=== PATIENT | male | born 1965 ===

== ENCOUNTER 2018-09-20 16:59 | Inpatient (IN) | payer OTHER ==
[2018-09-20 17:12] VITALS: BMI 25.8
--- NOTE | 2018-09-20 17:18 | ED PDOC ---
Arrival/HPI - General Historian: Patient - History of Present Illness Narrative History of Present Illness (Text): 09/20/18 17:14 53 year old male, no pmh, nkda, complaining of Lt. sided chest tightness radiating to the LUE x 1 day with no fall or trauma. Aching pain, pressure on the chest, radiating to the LUE when severe, admits palpitation, no night sweat, went to the [facility] urgent care and refer to the ER for evaluation, no coughing, no tearing sensation, no numbness or tingling, no other medical or psychological complaints. Past Medical History - Provider Review Nursing Documentation Reviewed: Yes Family/Social History - Physician Review Nursing Documentation Reviewed: Yes Family/Social History: Unknown Family HX Allergies/Home Meds Allergies/Adverse Reactions: Allergies No Known Allergies Allergy (Verified 09/20/18 17:19) Home Medications: Home Meds Medication Instructions Recorded Confirmed No Known Home Med 09/20/18 09/20/18 Review of Systems - Review of Systems Constitutional: absent: Fatigue, Fevers Eyes: absent: Vision Changes ENT: absent: Hearing Changes Respiratory: absent: SOB, Cough Cardiovascular: Chest Pain, Palpitations. absent: Orthopnea, Syncope Gastrointestinal: absent: Abdominal Pain, Diarrhea, Nausea, Vomiting Musculoskeletal: absent: Arthralgias, Back Pain Skin: absent: Rash, Pruritis, Skin Lesions Neurological: absent: Headache, Dizziness Endocrine: absent: Diaphoresis Psychiatric: absent: Anxiety, Depression, Suicidal Ideation Physical Exam Vital Signs Reviewed: Yes Vital Signs Temp Pulse Resp BP Pulse Ox 09/20/18 17:12 97.9 F 70 16 151/78 H 98 Temperature: Afebrile Blood Pressure: Hypertensive Pulse: Regular Respiratory Rate: Normal Appearance: Positive for: Well-Appearing, Non-Toxic, Comfortable Pain Distress: Mild Mental Status: Positive for: Alert and Oriented X 3 - Systems Exam Head: Present: Atraumatic, Normocephalic Pupils: Present: PERRL Extroacular Muscles: Present: EOMI Conjunctiva: Present: Normal Mouth: Present: Moist Mucous Membranes Pharnyx: Present: Normal. No: ERYTHEMA, EXUDATE, TONSILS ENLARGED Nose (External): Present: Atraumatic. No: Abrasion, Contusion, Laceration Nose (Internal): Present: Normal Inspection, No Active Bleeding. No: Rhinorrhea, Septal Hematoma, Epistaxis Neck: Present: Normal Range of Motion, Trachea Midline. No: Meningeal Signs, MIDLINE TENDERNESS, Paraspinal Tenderness, Lymphadenopathy Respiratory/Chest: Present: Clear to Auscultation, Good Air Exchange. No: Respiratory Distress, Accessory Muscle Use Cardiovascular: Present: Regular Rate and Rhythm, Normal S1, S2. No: Murmurs Abdomen: No: Tenderness, Distention, Peritoneal Signs, Rebound, Guarding Back: Present: Normal Inspection. No: CVA Tenderness, Midline Tenderness, Paraspinal Tenderness Upper Extremity: Present: Normal Inspection, Normal ROM, NORMAL PULSES, Neurovascularly Intact, Capillary Refill < 2s. No: Cyanosis, Edema, Deformity Lower Extremity: Present: Normal Inspection, NORMAL PULSES, Neurovascularly Intact. No: Edema, Tenderness, Swelling Neurological: Present: GCS=15, CN II-XII Intact, Speech Normal, Motor Func Grossly Intact, Gait Normal, Memory Normal Skin: Present: Warm, Dry, Normal Color. No: Rashes Psychiatric: Present: Alert, Oriented x 3, Normal Insight, Normal Concentration Medical Decision Making ED Course and Treatment: 09/20/18 17:21 -Labs -ekg -cxr -aspirin/nitro (confirmed with the patient that he has no cialis/viagra category medications use in the past 24 hours)/oxygen -observe and reassess 09/20/18 18:23 -EKG: NSR @ 67 BPM, no ST elevation or depression, T wave inversions in lead III/V3-V6 with no previous comparison -Chest xray ER wet read: no active disease -labs show no acute findings -Trop is negative first set -HEART score is moderate, will need admission for rule out ACS syndrome -Symptoms improved with meds given in the ER. -I discussed with the admitting physician Dr. Li, request Dr. Gonzales on the routine consult which request sets of troponin which she will follow up the result and consults. - RAD Interpretation Radiology Orders: Date of service: 09/20/2018 HISTORY: Chest pain. COMPARISON: No prior. FINDINGS: LUNGS: No active pulmonary disease. PLEURA: No significant pleural effusion identified, no pneumothorax apparent. CARDIOVASCULAR: No atherosclerotic calcification present Normal. OSSEOUS STRUCTURES: No significant abnormalities. VISUALIZED UPPER ABDOMEN: Normal. OTHER FINDINGS: None. IMPRESSION: No active disease. Concordant results with the preliminary interpretation rendered by the emergency department physician\PA at the conclusion of the procedure. Non Profit Director: Radiologist - EKG Interpretation EKG Interpretation (Text): 09/20/18 17:22 -EKG: NSR @ 67 BPM, no ST elevation or depression, T wave inversions in lead III/V3-V6 with no previous comparison Interpreted by ED Physician: Yes Type: 12 lead EKG - PA / PNEUMATIC HOIST OPERATOR / Resident Statement MD/DO has reviewed & agrees with the documentation as recorded. Disposition/Present on Arrival - Present on Arrival Any Indicators Present on Arrival: No History of DVT/PE: No History of Uncontrolled Diabetes: No Urinary Catheter: No History of Decub. Ulcer: No - Disposition Have Diagnosis and Disposition been Completed?: Yes Diagnosis: Chest pain, Abnormal EKG Disposition: HOSPITALIZED Disposition Time: 17:25 Patient Plan: Admission, Telemetry Patient Problems: Current Active Problems Problem Status Onset Chest pain Acute Abnormal EKG Acute Condition: GUARDED
[2018-09-20] MEDS ORDERED: Morphine 2 mg/ml ISec IVP STA (17:23)
[2018-09-20 18:08] LABS: BASO # 0.02 K/mm3 (0.0-2.0); BASO % 0.4 % (0.0-3.0); EOS # 0.1 (0.0-0.7); EOS % 0.9 % (1.5-5.0); HEMOGLOBIN 14.4 g/dL (14.0-18.0); LYMPH # 2.1 (1.2-3.4); LYMPH % 37.8 % (22.0-35.0); MEAN CELL VOLUME 84.6 fl (80.0-105.0); MEAN CORPUSCULAR HEMOGLOBIN 30.4 pg (25.0-35.0); MEAN CORPUSCULAR HGB CONC 35.9 g/dl (31.0-37.0); MEAN PLATELET VOLUME 10.1 fl (7.0-11.0); MONO # 0.4 (0.1-0.6); MONO % 6.8 % (1.0-6.0); RBC 4.74 10^6/uL (3.5-6.1); RED CELL DISTRIBUTION WIDTH 13.4 % (11.5-14.5); WHITE BLOOD COUNT 5.6 10^3/uL (4.5-11.0)
[2018-09-20 18:21] LABS: ALB/GLOB RATIO 1.6 (1.1-1.8); ALBUMIN 4.8 g/dL (3.0-4.8); ALT/SGPT 46 U/L (7-56); AST/SGOT 38 U/L (17-59); BLOOD UREA NITROGEN 15 mg/dL (7-21); CALCIUM 9.8 mg/dL (8.4-10.5); GFR NON-AFRICAN AMERICAN > 60
[2018-09-20 18:30] LABS: TROPONIN I < 0.01 ng/mL
--- NOTE | 2018-09-20 18:55 | RAD ---
Date of service: 09/20/2018 HISTORY: Chest pain. COMPARISON: No prior. FINDINGS: LUNGS: No active pulmonary disease. PLEURA: No significant pleural effusion identified, no pneumothorax apparent. CARDIOVASCULAR: No atherosclerotic calcification present Normal. OSSEOUS STRUCTURES: No significant abnormalities. VISUALIZED UPPER ABDOMEN: Normal. OTHER FINDINGS: None. IMPRESSION: No active disease. Concordant results with the preliminary interpretation rendered by the emergency department physician procedure.
[2018-09-21 01:37] LABS: TROPONIN I < 0.01 ng/mL
--- NOTE | 2018-09-21 07:47 | CARD ---
APPROVED REPORT Date of service: 09/20/2018 EKG Measurement Heart [id number] NM [id number] <Conclusion> Normal sinus rhythm T wave abnormality, consider anterolateral ischemia Abnormal ECG
[2018-09-21 09:04] LABS: TROPONIN I < 0.01 ng/mL
[2018-09-21 10:04] LABS: HDL CHOLESTEROL 22 mg/dL (29-60)
[2018-09-21 10:15] LABS: LDL CHOLESTEROL 72 mg/dL (0-129)
--- NOTE | 2018-09-21 10:20 | CON ---
DATE: 09/21/2018 REQUESTING PHYSICIAN: Dr. Li REASON FOR CONSULTATION: Chest pain. HISTORY: This is a 53-year-old man with no significant past medical history, who presents to the emergency room complaining of left-sided chest discomfort. He describes it as a heaviness which has been on his chest for the past several days. His pain is waxed and waned, it became more severe yesterday and he presented to an urgent care center and was referred to the emergency room. He also states he had some numbness in his left arm which made him concerned. He cannot identify any precipitating or relieving factors. He has no prior cardiac history. To the best of his knowledge, he is not hypertensive or diabetic. He is uncertain of his cholesterol status. He does not smoke. There is no family history of premature heart disease. PAST MEDICAL HISTORY: Otherwise unremarkable. MEDICATIONS: None. SOCIAL HISTORY: He does not smoke or drink. He is , lives with his . FAMILY HISTORY: Father in his 80s from age-related illness. Mother is alive with a history of diabetes as is his sister. REVIEW OF SYSTEMS: A 10-point review of systems is otherwise unremarkable. PHYSICAL EXAMINATION: GENERAL: He is a fairly healthy-appearing middle-aged man. VITAL SIGNS: His blood pressure is 116/80 with a pulse of 70 and sinus, respirations are 14. He is afebrile. HEENT: Normocephalic, atraumatic. NECK: Supple. No JVD noted. CHEST: Clear to auscultation and percussion. HEART: PMI in normal position. No pathologic murmurs or gallops noted. ABDOMEN: Soft, nontender, normoactive bowel sounds. EXTREMITIES: No edema. SKIN: Warm and dry. PSYCHIATRIC: Normal mood and affect. NEUROLOGICAL: Alert and oriented x3. No gross motor or sensory deficits appreciable. DIAGNOSTIC DATA: White count 5.6, hemoglobin and hematocrit of 14.4 and 40.1 with a platelet count of 159,000. BUN and creatinine of 15 and 0.9. Glucose is 95. Two sets of cardiac enzymes are negative. Lipid panel is not performed. Chest x-ray reveals normal cardiac silhouette with clear lung mccoy. Electrocardiogram reveals sinus rhythm with nonspecific ST-T abnormalities. IMPRESSION: Chest pain in a middle-aged man with no clear cardiac risk factors and negative cardiac enzymes. The possibility of underlying coronary disease is certainly possible. Lipid profile should be checked before discharge. As he is currently comfortable and his cardiac enzymes are negative, discharge home at this time will be reasonable and an outpatient stress test next week will be arranged. A lipid panel has been ordered. If he has any worsening symptoms, he was instructed to return to the emergency room. Thank you for this consultation. We will be happy to arrange for his outpatient workup as needed. Keenan Saleh MD
[2018-09-22 07:03] LABS: HDL CHOLESTEROL 23 mg/dL (29-60)
[2018-09-22 07:14] LABS: LDL CHOLESTEROL 88 mg/dL (0-129)
--- NOTE | 2018-09-22 15:57 | HP ---
DATE OF EXAM: 09/20/2018 HISTORY OF PRESENT ILLNESS: This 53-year-old male was examined in the [facility] Emergency Room on the afternoon of 09/20/2018. This case was reviewed in detail with Rocael Eldridge, nurse practitioner. The patient presented to the [facility] ER complaining of left-sided chest tightness. Earlier today, he had been in a local Urgent Care Center where he was noted to have an abnormal EKG with inverted T-waves V1-V6. This was again confirmed in the [facility] ER and because of this achy pressure in his chest, tight feeling radiating to his left upper extremity, he is admitted for chest pain rule out CT. The patient states he is on no medication, has not been to a doctor in years, is without any significant past medical history, and at present was chest pain free. SOCIAL HISTORY: He is a nondrinker, nonsmoker, non IV drug misuser. 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 He is and lives with his . FAMILY HISTORY: Noncontributory. REVIEW OF SYSTEMS HEAD REVIEW: No headache or seizure. EYE REVIEW: No change in visual acuity. EAR REVIEW: No hearing loss. THROAT REVIEW: No swallowing difficulty. NECK REVIEW: No stiffness. CARDIAC REVIEW: None in the past. PULMONARY: No cough. No hemoptysis. GI: No hematemesis. No melena. : No dysuria. SKIN: No rash. VASCULAR: No claudication. PSYCHOLOGICAL: No knowledge of anxiety or depression. PHYSICAL EXAMINATION VITAL SIGNS: He was in sinus rhythm with a temperature of 97.9, respirations 16, pulse 70, and blood pressure 134/69 with a pulse ox of 98%. HEENT: Head: Normocephalic, atraumatic. Eyes: No icterus. Ears: Clear. Throat: Noninjected. NECK: Supple. HEART: Regular S1, S2. No pathological rubs, murmurs or gallops. LUNGS: Clear. ABDOMEN: Soft. EXTREMITIES: No edema. SKIN: Without rash. NEUROLOGICAL: Intact. PSYCHOLOGICAL: Alert. VASCULAR: Legs warm to touch. LABORATORY DATA: White count 5600, hemoglobin 14.4, hematocrit 40.1, platelets 159,000. Sodium 140, K 4.2, chloride 105, bicarb 28, BUN 15, creatinine 0.9, random blood sugar 95. Calcium 9.8, magnesium 2.2, bilirubin 0.5. AST 38, ALT 46, alk phos 86. First set of troponin less than 0.01. Chest x-ray was reviewed, it showed no active pulmonary disease, no infiltrate, no effusion, no pneumothorax, no consolidation. His EKG was reviewed, it showed normal sinus rhythm with inverted T-waves in the V1-V6 leads. IMPRESSION: A 53-year-old male with chest tightness, abnormal EKG, rule out myocardial infarction, rule out coronary artery syndrome. PLAN: The plan is to admit this patient to the [facility]. He will have a consultation with Dr. Keenan Saleh from Cardiology. He will have serial cardiac isoenzymes and have a heart-healthy diet and fasting lipids ordered for the a.m. All of the above was reviewed with the patient and his in the emergency room. All questions were answered. Greater than 75 minutes was spent in the care management outlining of orders and reviewing of x-rays, labs and EKGs, and discussion of this case with nurse practitioner in the emergency room. All questions were answered. Beba Li MD [facility]
[2018-09-23 06:18] VITALS: O2SAT 98
--- NOTE | 2018-09-23 08:13 | PN ---
DATE: 09/21/2018 SUBJECTIVE: This 53-year-old male was examined on the [facility] on the morning of 09/21/2018. The patient was sitting with his , Angeles Recinos and present for the interview was nurse Krystal Velasquez, registered nurse. The patient denied any active chest pain at present. He was seen in consultation by Dr. Saleh. Dr. Saleh felt the patient could have an elective stress test as an outpatient, however, the raised concerns that the patient may not have been forthcoming with all of his symptoms including persistent on and off chest pain, reluctance for medical followup in the past or future, and strong risk factors including age of 53, typical chest pain symptoms, abnormal EKG and on today's lab testing a finding of a triglyceride level of 516. The patient has been placed on a heart-healthy diet, empiric Lopid therapy, and now agrees to inpatient thallium stress testing. PHYSICAL EXAMINATION: GENERAL: He was in normal sinus rhythm on the desk monitor, chest pain free at the moment. VITAL SIGNS: Temperature 98.2, respirations 18, pulse 72, blood pressure 103/61, and pulse ox 96%. Physical exam unchanged. LABORATORY DATA: Second set of CPK isoenzymes, CPK 149 with troponin less than 0.01 and a third set of his isoenzyme showed CPK 133 with troponin less than 0.01. Cholesterol 158, triglycerides 516, LDL 72 and HDL 22. IMPRESSION: This is a 53-year-old male with critical chest pain, age 53, hypertriglyceridemia and abnormal echocardiogram as discussed with the patient, present at bedside and nurse, Krystal Velasquez. He will be started on Lopid 600 mg p.o. b.i.d., given a heart-healthy diet, and ordered to have a Lexiscan stress test on Sunday morning prior to discharge to ensure that this patient is safe to return to his job at work. Greater than 35 minutes was spent in the care management, review of labs, orders and x-rays and discussion of this patient with himself, his and nursing. All questions were answered. Beba Li MD [facility]
--- NOTE | 2018-09-23 08:13 | PN ---
DATE: 09/22/2018 SUBJECTIVE: This 53-year-old male remains hospitalized on the [facility] on the morning of 09/22/2018. Of note, the patient did have a repeat fasting cholesterol, lipid panel that showed cholesterol 155, triglycerides 318, LDL 88, and HDL 23. The patient was also given Lopid yesterday. At present, he denies active chest pain. There are no fever or chills. He is in a sinus rhythm on the panel monitor. PHYSICAL EXAMINATION: VITAL SIGNS: Temperature is 98.7, respirations 18, pulse 68 and blood pressure 115/69. Pulse ox 98%. HEENT: Head normocephalic, atraumatic. Eyes: No icterus. Ears: Clear. Throat: Noninjected. NECK: Supple. HEART: S1, S2. LUNGS: Clear. ABDOMEN: Soft. EXTREMITIES: No edema. SKIN: Without rash. NEUROLOGIC: Intact. PSYCHOLOGIC: Alert. VASCULAR: Legs warm to touch. IMPRESSION: A 53-year-old male who presented with typical chest pain, abnormal echocardiogram showing anterior lateral ischemia with hyperlipidemia. PLAN: To maintain this patient on the [facility]. I have ordered a Lexiscan stress test for the a.m. He will continue on heart-healthy diet, Lopid 600 mg p.o. b.i.d. and cardiac monitoring. Greater than 35 minutes was spent in the care management, review of labs, orders and x-rays and discussion of this patient with himself, nursing, and . All questions were answered. Beba Li MD
[2018-09-23] MEDS ORDERED: Aminophylline 25 mg/ml Inj ONE (09:46)
[2018-09-23 18:07] VITALS: RESP 20
--- NOTE | 2018-09-23 20:01 | CARD ---
APPROVED REPORT Date of service: 09/23/2018 Protocol: LEXISCAN Test Type: Lexiscan Sestamibi Stress Test Attending Physician: Dr. Keenan Saleh Referring Physician: Dr. Beba Li Test Indications: Abnormal ECG, Chest Pain Height:5 ft 9 in Weight:170lbs Medications: lopid Medical History: 53 year old male with no significant medical history Target HR: 166 bpm Resting ECG: abnormal Resting Heart Rate: 71 bpm Resting Blood Pressure: 128/76mmHg Submaximum (85%): 141 bpm PROCEDURE Pharmacologic stress testing was performed using 0.4mg per 5ml of regadenoson given intravenously over 7-10 seconds. POST EXERCISE Reason for Termination: Protocol completed Target HR: No Max HR: 66 bpm 59% of Maximum Predicted HR: 166 bpm Exercise duration: 00:30 min:sec, 0 Stage Exercise capacity: 1.0METs Max Blood Pressure: 128/76mmHg Blood Pressure response to exercise: normal resting BP - appropriate response Heart Rate response to exercise: appropriate Chest Pain: Yes, non-limiting Angina index: 0 Arrhythmia: Yes, atrial premature beats-isolated ST Change: No, none Deviation: 0 mm INTERPRETATION Stress EKG Conclusion: Normal infusion phase of Lexiscan NST. Signed by Keenan Saleh Electronically Approved: 09/23/2018 13:21:05 EXAM: Myocardial Perfusion REST/STRESS Stress Test Type: Pharmacologic Imaging Protocol The imaging protocol used to acquire images was Rest Tc-99m/stress Tc-99m 1 day Rest Spect myocardial perfusion imaging was performed in supine position 40 minutes following the injection of 10.3 mCi of Tc-99 Myoview. At peak stress, the patient was injected intravenously with 30.4mCi of Tc-99 tetrofosmin after an infusion time of minutes and seconds. Gated Stress Spect was performed 60 minutes after intravenous Tc-99 Myoview injection. The images were gated to evaluate regional wall motion and calculate ventricular ejection fraction.Images were reconstructed using backfilter projection method in short horizontal and verticle long axis. Spect slices were generated. LV Perfusion The quality of the study is good. The left ventricle is normal in size. The right ventricle is unremarkable. The lung uptake is within normal limits. The distribution of tracer reveals normal uptake pattern throughout the LV myocardium on the stress study. The rest myocardial perfusion study shows no significant change, Wall Motion Wall motion study shows good contractility of the left ventricle. LVEF = 63%. Conclusion 1. Normal SPECT myocardial perfusion study. 2. Normal gated wall motion of the left ventricle.
--- NOTE | 2018-09-23 21:21 | PN ---
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 He is on schedule for a thallium stress test today and is at the bedside. The patient at present has no fever or chills. PHYSICAL EXAMINATION: VITAL SIGNS: Normal sinus rhythm on director appointment. Temperature 97.1, respirations 20, pulse 64 and blood pressure 118/70. Physical exam remains unchanged. LABORATORY DATA: White count 5600, hemoglobin 14.4, hematocrit 40.1, platelets 159,000. Sodium 140, K 4.2, chloride 105, bicarb 28, BUN 15, creatinine 0.9, random blood sugar 95. Troponin was less than 0.01 x3. Repeat triglycerides 318, cholesterol 155, LDL 88 and HDL 23. IMPRESSION: This is a 53-year-old male admitted with typical chest pain, abnormal electrocardiogram, hyperlipidemia, in the process of obtaining a myocardial stress test given his history, presentation, and noncompliance with medical followup in the past. As discussed with the patient and nursing, I have requested that the dietitian review a low cholesterol, low triglyceride diet with this patient. He will continue on Lopid by mouth 2 times a day and pending the results of his myocardial stress test, additional diagnostic workup and testing will be entertained. Greater than 35 minutes was spent in the care and discussion of this patient's case with himself and his including discussion of a heart-healthy diet and medication need and need for compliance. Beba Li MD
[2018-09-24 06:55] VITALS: BP 111/71; PULSE 74; TEMP 98.2
--- NOTE | 2018-09-24 20:53 | DS ---
FINAL DIAGNOSES: Chest pain resolved, hyperlipidemia, abnormal EKG with a normal myocardial stress test. TOBACCO SWEEPER: Dr. Keenan Saleh from Cardiology DISPOSITION: Home. DISCHARGE DIET: Heart-healthy. DISCHARGE MEDICATIONS: Lopid 600 mg p.o. b.i.d. and fish oil 1200 mg p.o. b.i.d. SUMMARY: This 53-year-old male presented to a local Urgent Care Center complaining of chest pain and was found to have an abnormal EKG. He subsequently came to the [facility] ER. A repeat EKG was performed in the ER. It was also abnormal. It showed ischemic changes in his precordial leads. He was therefore admitted for further evaluation of the above. He underwent serial cardiac isoenzymes with troponin levels less than 0.01 x3. He had a chest x-ray that showed no infiltrate. His EKG showed T-wave inversions V1 through V6. He completed a myocardial stress test that was reviewed and showed good quality of study with a left ventricle that was normal in size. Right ventricle was unremarkable. The lung uptake was within normal limits and distribution of tracer revealed normal uptake pattern throughout the left ventricular myocardium on the stress study. There was no evidence of ischemia and the stress test was interpreted as unremarkable. At the time of discharge, the patient's temperature was 98.2, respirations 20, pulse 74, blood pressure 111/71, and pulse ox 98% room air. His initial cholesterol was 158 with a triglyceride of 516, LDL of 72 and an HDL of 22. Sodium 140, K 4.2, chloride 105, bicarb 28, BUN 15, creatinine 0.9, calcium 9.8, magnesium 2.2, bilirubin 0.5, AST 38, ALT 46, and alk phos 86. White count 5600, hemoglobin 14.4, hematocrit 40.1 and platelets of 159,000. The patient is discharged to home was advised on heart-healthy diet, the need for compliance with his Lopid and fish oil and to begin a daily exercise plan. All this was reviewed in detail at the bedside with the patient and his , Angeles Recinos present. All questions were answered. Greater than 35 minutes was spent in the discharge management of this patient today, all questions were answered. Beba Li MD [facility] # [id number] [facility]
== END 2018-09-24 12:22 | disposition home or self-care (01) | DRG 313 ==
LOC: ED 16:59 → ERH 18:28 → 2RNO 21:23 → OBSVTOIN 09-21 13:47 → 2RSO 09-22 06:55 → 2RNO 09-22 10:23
PROVIDERS: ADMIT Internal Medicine; ATTEND Internal Medicine
DX: R07.9 Chest pain, unspecified (principal); R94.31 Abnormal electrocardiogram [ECG] [EKG]; E78.1 Pure hyperglyceridemia; E78.5 Hyperlipidemia, unspecified; Z83.3 Family history of diabetes mellitus; Z91.19 Patient's noncompliance with other medical treatment and regimen